=== PATIENT | female | born 1935 | race Caucasian/White ===

== ENCOUNTER 2020-09-12 07:49 | Emergency (ER) | payer MEDICARE, OTHER ==
[~2020-09-12 07:49] MED LIST: Ondansetron PF 4 MG/2 ML Vial ONE
[2020-09-12 08:11] LABS: ALT (SGPT) 17 U/L (8-55); AST (SGOT) 26 U/L (5-34); Albumin 3.7 g/dL (3.4-4.8); Alkaline Phosphatase 130 U/L (40-110); Anion Gap 20 mmol/L (10-20); BUN (Urea Nitrogen) 24 mg/dL (9.8-20.1); Bilirubin, Total 0.6 mg/dL (0.2-1.2); Calc. Creatinine Clearance 0 mL/min (70-130); Calcium 9.3 mg/dL (7.8-10.44); Carbon Dioxide 20 mmol/L (23-31); Chloride 107 mmol/L (98-107); Glucose 126 mg/dL (83-110); Potassium 3.5 mmol/L (3.5-5.1); Protein, Total 6.7 g/dL (5.8-8.1); Sodium 143 mmol/L (136-145)
[2020-09-12 08:15] LABS: Lactic Acid 1.2 mmol/L (0.5-2.2)
[2020-09-12 08:28] LABS: Hemoglobin 13.4 g/dL (12.0-15.5); Mean Corpuscular HGB CONC 31.8 g/dL (32.0-36.0); Mean Corpuscular Hemoglobin 27.9 pg (27.0-33.0); Mean Corpuscular Volume 87.9 fl (81.6-98.3); Mean Platelet Volume 11.5 fl (7.4-10.4); Platelet Count 282 10x3/uL (150-450); RBC Distribution Width 14.8 % (11.5-14.5); White Blood Cell (WBC) Count 6.6 10x3/uL (3.5-10.5)
[2020-09-12 08:29] LABS: Band 47 % (5-11); Eosinophils 3 % (0-10); Lymphocytes 17 % (21-51); MDiff Complete? YES; Monocytes 13 % (0-10); Neutrophil 20 % (42-75)
[2020-09-12 08:30] LABS: Vacuoles SLIGHT
[2020-09-12 08:31] LABS: Platelet Morphology Comment Appears Adequate
== END 2020-09-12 09:38 | disposition home or self-care (01) ==
LOC: CSHERS 07:49
DX: R19.7 Diarrhea, unspecified (principal); E86.0 Dehydration; I25.10 Atherosclerotic heart disease of native coronary artery without angina pectoris; I25.2 Old myocardial infarction; E11.9 Type 2 diabetes mellitus without complications; E03.9 Hypothyroidism, unspecified; E78.5 Hyperlipidemia, unspecified; Z79.84 Long term (current) use of oral hypoglycemic drugs; Z79.899 Other long term (current) drug therapy
CPT/HCPCS: 80053; 83605; 85025; 93005; 93010; 96374; J2405

== ENCOUNTER 2020-09-13 19:36 | Inpatient (IN) | payer MEDICARE, OTHER ==
[2020-09-13] MEDS ORDERED: Ondansetron PF 4 MG/2 ML Vial ONE (20:09)
[2020-09-13 20:47] LABS: Hemoglobin 12.5 g/dL (12.0-15.5); Mean Corpuscular HGB CONC 31.9 g/dL (32.0-36.0); Mean Corpuscular Hemoglobin 27.8 pg (27.0-33.0); Mean Corpuscular Volume 87.3 fl (81.6-98.3); Mean Platelet Volume 11.8 fl (7.4-10.4); Platelet Count 266 10x3/uL (150-450); RBC Distribution Width 15.3 % (11.5-14.5); Red Blood Cell (RBC) Count 4.49 10x6/uL (3.90-5.03); White Blood Cell (WBC) Count 9.1 10x3/uL (3.5-10.5)
[2020-09-13 20:53] LABS: ALT (SGPT) 14 U/L (8-55); AST (SGOT) 19 U/L (5-34); Albumin 3.3 g/dL (3.4-4.8); Alkaline Phosphatase 100 U/L (40-110); Anion Gap 24 mmol/L (10-20); BUN (Urea Nitrogen) 56 mg/dL (9.8-20.1); Bilirubin, Total 0.5 mg/dL (0.2-1.2); Calc. Creatinine Clearance 0 mL/min (70-130); Calcium 8.9 mg/dL (7.8-10.44); Carbon Dioxide 15 mmol/L (23-31); Chloride 106 mmol/L (98-107); Globulin 3.1 g/dL (2.4-3.5); Glucose 133 mg/dL (83-110); Protein, Total 6.4 g/dL (5.8-8.1); Sodium 142 mmol/L (136-145)
[2020-09-13 21:15] LABS: Band 35 % (5-11); Lymphocytes 15 % (21-51); Metamyelocyte 1 % (0-0); Monocytes 13 % (0-10); Reactive Lymphocytes 2 % (0-10)
[2020-09-13 21:16] LABS: Neutrophil 34 % (42-75)
[2020-09-13 21:20] LABS: Burr Cells SLIGHT = 2-5 cells (100X) (0-1/hpf); Poikilocytosis SLIGHT = 6-15 cells (100X) (0-5/hpf)
[2020-09-13 21:22] LABS: Platelet Morphology Comment Appears Adequate
[2020-09-13 21:32] LABS: Potassium 2.8 mmol/L (3.5-5.1)
[2020-09-13] MEDS ORDERED: Magnesium 2 GM/50 ML BAG (IN WATER) ONE (22:23)
[2020-09-13] MEDS ORDERED: Piperacillin/Tazobactam 4.5 GM VIAL ONE (22:23)
[2020-09-13] MEDS ORDERED: Potassium Chloride 20 MEQ/100 ML PREMIX BAG ONE (22:26)
[2020-09-13] MEDS ORDERED: Zolpidem Tartrate 5 MG TAB PO PRN (22:33)
[2020-09-13] MEDS ORDERED: Dextrose 5% in Water 1,000 ML IV PRN (22:33)
[2020-09-13] MEDS ORDERED: Dextrose 50% Abboject 50 ML SYRINGE SLOW IVP PRN (22:33)
[2020-09-13] MEDS ORDERED: Ondansetron PF 4 MG/2 ML Vial IVP PRN (22:33)
[2020-09-13] MEDS ORDERED: HumaLOG 300 UNITS/3 ML VIAL SC PRN (22:33)
[2020-09-13] MEDS ORDERED: Morphine 2 MG/ML VIAL SLOW IVP PRN (22:35)
[2020-09-14 00:07] VITALS: BMI 17.5
[2020-09-14 00:07] LABS: SARS-CoV-2 NAA Rapid Test Not Detected (NotDetected)
[2020-09-14] MEDS ORDERED: Potassium Chloride 20 MEQ in Premix Bag 1 BAG IVPB SCH (01:00)
[2020-09-14] MEDS ORDERED: Potassium Chloride 20 MEQ in Lactated Ringer's 1,000 ML IV SCH (01:00)
[2020-09-14 02:53] LABS: Bilirubin Neg (Negative); Blood, Urine Negative (Negative); Clarity Clear (Clear); Glucose, Urine (Dipstick) Normal (Negative); Ketone, Urine 15 mg/dL (Negative); Leukocyte Negative (Negative); Nitrite Negative (Negative); Protein, Urine (Dipstick) 15 mg/dl (Neg-Trace); Urobilinogen Normal mg/dL (Less than 2)
[2020-09-14] MEDS: Lactated Ringer's 1,000 ML IV SCH ×4 (03:15→20:29)
[2020-09-14 04:00] LABS: RBC/HPF 0-3 HPF (0-3); Squamous Epithelial 0-3 HPF (0-3); WBC/HPF 0-3 HPF (0-3)
[2020-09-14 04:02] LABS: Bacteria/HPF 3+ HPF (None Seen); Mucous/LPF 2+ LPF (<2+); Transitional Epithelial 0-3 HPF (None Seen)
[2020-09-14] MEDS: MEROPENEM 1 GM/50 ML 1 GM in Premix Bag 1 BAG IVPB SCH ×2 (06:02→18:44)
[2020-09-14] MEDS: Levothyroxine Sodium 88 MCG TAB PO SCH (06:05)
[2020-09-14 07:13] LABS: Hemoglobin 12.1 g/dL (12.0-15.5); Mean Corpuscular Hemoglobin 27.7 pg (27.0-33.0); Mean Corpuscular Volume 89.2 fl (81.6-98.3); Mean Platelet Volume 12.3 fl (7.4-10.4); Platelet Count 215 10x3/uL (150-450); RBC Distribution Width 15.6 % (11.5-14.5); Red Blood Cell (RBC) Count 4.37 10x6/uL (3.90-5.03); White Blood Cell (WBC) Count 9.8 10x3/uL (3.5-10.5)
[2020-09-14 07:18] LABS: Anion Gap 21 mmol/L (10-20); BUN (Urea Nitrogen) 45 mg/dL (9.8-20.1); Calc. Creatinine Clearance 17 mL/min (70-130); Calcium 8.6 mg/dL (7.8-10.44); Carbon Dioxide 13 mmol/L (23-31); Chloride 116 mmol/L (98-107); Glucose 96 mg/dL (83-110); Magnesium 2.9 mg/dL (1.6-2.6); Potassium 3.4 mmol/L (3.5-5.1); Sodium 147 mmol/L (136-145)
[2020-09-14 07:55] LABS: MDiff Complete? YES
[2020-09-14 08:00] LABS: Band 36 % (5-11); Lymphocytes 9 % (21-51); Monocytes 7 % (0-10); Neutrophil 46 % (42-75); Reactive Lymphocytes 2 % (0-10)
[2020-09-14 08:02] LABS: Burr Cells MODERATE= 6-15 cells (100X) (0-1/hpf); Platelet Morphology Comment Appears Adequate
[2020-09-14] MEDS: Pantoprazole 40 MG VIAL IVP SCH (09:51)
[2020-09-14] MEDS: Heparin 5,000 UNITS/ML VIAL SC SCH ×3 (09:51→20:36)
[2020-09-14] MEDS: Aspirin 325 mg Enteric Coated Tablet PO SCH (09:51)
[2020-09-14] MEDS ORDERED: Metoprolol Tartrate 5 MG/5 ML VIAL IVP PRN (14:09)
[2020-09-14] MEDS ORDERED: Digoxin 0.5 MG/2 ML AMP ONE (14:14)
[2020-09-14] MEDS ORDERED: Digoxin 0.5 MG/2 ML AMP SLOW IVP SCH ×3 (14:15→23:45)
[2020-09-14] MEDS ORDERED: Sodium Bicarbonate 150 MEQ, Admixture Fee 1 EACH in Dextrose 5% in Water 1,000 ML IV SCH (15:30)
[2020-09-14] MEDS ORDERED: Diltiazem 125 MG in Sodium Chloride 0.9% 100 ML IVPB SCH (18:30)
[2020-09-14] MEDS: Atorvastatin Calcium 20 MG TAB PO SCH (20:36)
[2020-09-14] MEDS ORDERED: Sodium Chloride 0.9% 250 ML IVPB SCH ×2 (23:30→23:45)
[2020-09-14] MEDS ORDERED: Metoprolol Tartrate 25 MG TAB PO SCH (23:45)
[2020-09-15] MEDS: Levothyroxine Sodium 88 MCG TAB PO SCH (05:11)
[2020-09-15] MEDS: MEROPENEM 1 GM/50 ML 1 GM in Premix Bag 1 BAG IVPB SCH ×2 (05:11→18:08)
[2020-09-15] MEDS: Lactated Ringer's 1,000 ML IV SCH ×2 (05:15→13:10)
[2020-09-15 05:39] LABS: ALT (SGPT) 12 U/L (8-55); AST (SGOT) 24 U/L (5-34); Albumin 2.7 g/dL (3.4-4.8); Alkaline Phosphatase 98 U/L (40-110); Anion Gap 14 mmol/L (10-20); BUN (Urea Nitrogen) 33 mg/dL (9.8-20.1); Bilirubin, Total 0.3 mg/dL (0.2-1.2); Calc. Creatinine Clearance 25 mL/min (70-130); Calcium 8.9 mg/dL (7.8-10.44); Carbon Dioxide 24 mmol/L (23-31); Chloride 113 mmol/L (98-107); Globulin 2.4 g/dL (2.4-3.5); Glucose 142 mg/dL (83-110); Protein, Total 5.1 g/dL (5.8-8.1); Sodium 148 mmol/L (136-145)
[2020-09-15 05:45] LABS: Hemoglobin 11.8 g/dL (12.0-15.5); Mean Corpuscular HGB CONC 32.2 g/dL (32.0-36.0); Mean Corpuscular Hemoglobin 27.9 pg (27.0-33.0); Mean Corpuscular Volume 86.5 fl (81.6-98.3); Mean Platelet Volume 12.2 fl (7.4-10.4); Platelet Count 223 10x3/uL (150-450); RBC Distribution Width 15.5 % (11.5-14.5); Red Blood Cell (RBC) Count 4.23 10x6/uL (3.90-5.03); White Blood Cell (WBC) Count 11.3 10x3/uL (3.5-10.5)
[2020-09-15 05:55] LABS: Potassium 2.7 mmol/L (3.5-5.1)
[2020-09-15] MEDS: Potassium Chloride 20 MEQ TAB PO SCH ×2 (06:21→08:51)
[2020-09-15] MEDS: Aspirin 325 mg Enteric Coated Tablet PO SCH (08:50)
[2020-09-15] MEDS: Heparin 5,000 UNITS/ML VIAL SC SCH ×3 (08:50→20:21)
[2020-09-15] MEDS: Metoprolol Tartrate 25 MG TAB PO SCH ×2 (08:50→20:23)
[2020-09-15] MEDS: Pantoprazole 40 MG VIAL IVP SCH (08:50)
[2020-09-15 09:37] LABS: Band 4 % (5-11); Lymphocytes 6 % (21-51); Monocytes 7 % (0-10)
[2020-09-15 09:38] LABS: Burr Cells SLIGHT = 2-5 cells (100X) (0-1/hpf); Elliptocytes SLIGHT = 2-5 cells (100X) (0-1/hpf); MDiff Complete? YES; Neutrophil 83 % (42-75)
[2020-09-15 09:39] LABS: Dohle Bodies SLIGHT; Large Platelets SLIGHT; Platelet Morphology Comment Appears Adequate; Toxic Granulation SLIGHT; Vacuoles SLIGHT
[2020-09-15] MEDS: Atorvastatin Calcium 20 MG TAB PO SCH (20:22)
[2020-09-16] MEDS: MEROPENEM 1 GM/50 ML 1 GM in Premix Bag 1 BAG IVPB SCH (05:15)
[2020-09-16] MEDS: Levothyroxine Sodium 88 MCG TAB PO SCH (05:15)
[2020-09-16 05:45] LABS: Anion Gap 14 mmol/L (10-20); BUN (Urea Nitrogen) 21 mg/dL (9.8-20.1); Calc. Creatinine Clearance 41 mL/min (70-130); Calcium 9.1 mg/dL (7.8-10.44); Carbon Dioxide 21 mmol/L (23-31); Chloride 113 mmol/L (98-107); Glucose 74 mg/dL (83-110); Sodium 145 mmol/L (136-145)
[2020-09-16 05:50] LABS: Potassium 2.9 mmol/L (3.5-5.1)
[2020-09-16 05:57] LABS: Mean Corpuscular HGB CONC 31.5 g/dL (32.0-36.0); Mean Corpuscular Hemoglobin 27.4 pg (27.0-33.0); Mean Platelet Volume 11.6 fl (7.4-10.4); Platelet Count 173 10x3/uL (150-450); RBC Distribution Width 15.7 % (11.5-14.5); Red Blood Cell (RBC) Count 4.38 10x6/uL (3.90-5.03); White Blood Cell (WBC) Count 8.8 10x3/uL (3.5-10.5)
[2020-09-16] MEDS: Potassium Chloride 20 MEQ TAB PO SCH ×2 (06:31→08:49)
[2020-09-16 07:26] LABS: Eosinophils 1 % (0-10); Metamyelocyte 3 % (0-0); Myelocyte 3 % (0-0); Reactive Lymphocytes 5 % (0-10)
[2020-09-16 07:31] LABS: Band 10 % (5-11)
[2020-09-16 07:35] LABS: Monocytes 4 % (0-10)
[2020-09-16 07:36] LABS: Lymphocytes 14 % (21-51); Neutrophil 60 % (42-75)
[2020-09-16 07:39] LABS: Anisocytosis SLIGHT = 6-15 cells (100X) (0-5/hpf); Burr Cells SLIGHT = 2-5 cells (100X) (0-1/hpf); Crenated RBC SLIGHT = 1-5 cells (100X) (None Seen); Elliptocytes SLIGHT = 2-5 cells (100X) (0-1/hpf); Microcytosis SLIGHT = 6-15 cells (100X) (0-5/hpf); Ovalocytes SLIGHT = 2-5 cells (100X) (0-1/hpf); Poikilocytosis MODERATE=16-30 cells (100X) (0-5/hpf)
[2020-09-16 07:40] LABS: Helmet Cells SLIGHT = 2-5 cells (100X) (0-1/hpf)
[2020-09-16 07:41] LABS: Dohle Bodies SLIGHT; Platelet Clumps SLIGHT
[2020-09-16 07:42] LABS: Large Platelets SLIGHT; Platelet Morphology Comment Appears Adequate; Toxic Granulation SLIGHT; Vacuoles SLIGHT
[2020-09-16 07:44] LABS: MDiff Complete? YES; Manual Diff?? YES
[2020-09-16] MEDS: Heparin 5,000 UNITS/ML VIAL SC SCH ×3 (08:50→21:10)
[2020-09-16] MEDS: Metoprolol Tartrate 25 MG TAB PO SCH ×2 (08:50→21:06)
[2020-09-16] MEDS: Aspirin 325 mg Enteric Coated Tablet PO SCH (08:50)
[2020-09-16] MEDS ORDERED: Potassium Chloride 20 MEQ TAB PO SCH ×2 (15:45→18:45)
[2020-09-16] MEDS: Ciprofloxacin 500 MG TAB PO SCH (21:06)
[2020-09-16] MEDS: metroNIDAZOLE 500 MG TAB PO SCH (21:07)
[2020-09-16] MEDS: Atorvastatin Calcium 20 MG TAB PO SCH (21:07)
[2020-09-17 05:17] LABS: Hemoglobin 11.3 g/dL (12.0-15.5); Mean Corpuscular HGB CONC 32.2 g/dL (32.0-36.0); Mean Corpuscular Hemoglobin 27.8 pg (27.0-33.0); Mean Corpuscular Volume 86.2 fl (81.6-98.3); Mean Platelet Volume 11.8 fl (7.4-10.4); Platelet Count 164 10x3/uL (150-450); RBC Distribution Width 15.5 % (11.5-14.5); Red Blood Cell (RBC) Count 4.07 10x6/uL (3.90-5.03); White Blood Cell (WBC) Count 7.4 10x3/uL (3.5-10.5)
[2020-09-17 05:26] LABS: Anion Gap 11 mmol/L (10-20)
[2020-09-17 05:34] LABS: BUN (Urea Nitrogen) 15 mg/dL (9.8-20.1); Calc. Creatinine Clearance 45 mL/min (70-130); Calcium 8.9 mg/dL (7.8-10.44); Carbon Dioxide 23 mmol/L (23-31); Chloride 111 mmol/L (98-107); Glucose 70 mg/dL (83-110); Potassium 4.5 mmol/L (3.5-5.1); Sodium 140 mmol/L (136-145)
[2020-09-17 05:50] LABS: Band 11 % (5-11); Eosinophils 2 % (0-10); Monocytes 8 % (0-10); Myelocyte 4 % (0-0)
[2020-09-17 05:52] LABS: Reactive Lymphocytes 3 % (0-10)
[2020-09-17 05:53] LABS: Lymphocytes 21 % (21-51)
[2020-09-17 05:57] LABS: Metamyelocyte 2 % (0-0); Neutrophil 49 % (42-75)
[2020-09-17 05:58] LABS: Anisocytosis SLIGHT = 6-15 cells (100X) (0-5/hpf); Microcytosis SLIGHT = 6-15 cells (100X) (0-5/hpf); Toxic Granulation MODERATE
[2020-09-17 05:59] LABS: Giant Platelets SLIGHT; Hypersemented Neutrophil SLIGHT; Large Platelets SLIGHT; Vacuoles SLIGHT
[2020-09-17 06:00] LABS: MDiff Complete? YES; Manual Diff?? YES; Platelet Morphology Comment Appears Adequate
[2020-09-17] MEDS: Ciprofloxacin 500 MG TAB PO SCH (06:21)
[2020-09-17] MEDS: Levothyroxine Sodium 88 MCG TAB PO SCH (06:21)
[2020-09-17] MEDS: Metoprolol Tartrate 25 MG TAB PO SCH (08:26)
[2020-09-17] MEDS: metroNIDAZOLE 500 MG TAB PO SCH (08:26)
[2020-09-17] MEDS: Heparin 5,000 UNITS/ML VIAL SC SCH (08:27)
[2020-09-17] MEDS ORDERED: Aspirin 81 mg Enteric Coated Tablet PO SCH (09:00)
[2020-09-17 11:59] VITALS: TEMP 97.6
[2020-09-17 12:21] VITALS: BP 129/66
== END 2020-09-17 13:35 | disposition home or self-care (01) | DRG 394 ==
LOC: CSHERS 19:36 → CSHTELE 09-14 00:04
PROVIDERS: ADMIT Student in an Organized Health Care Education/Training Program; ATTEND Family Medicine
DX: K66.8 Other specified disorders of peritoneum (principal); N17.9 Acute kidney failure, unspecified; E87.2 Acidosis; E87.0 Hyperosmolality and hypernatremia; K56.7 Ileus, unspecified; K56.609 Unspecified intestinal obstruction, unspecified as to partial versus complete obstruction; E03.9 Hypothyroidism, unspecified; Z20.822 Contact with and (suspected) exposure to COVID-19; E87.6 Hypokalemia; R53.81 Other malaise; I25.10 Atherosclerotic heart disease of native coronary artery without angina pectoris; E78.2 Mixed hyperlipidemia; I48.0 Paroxysmal atrial fibrillation; E86.1 Hypovolemia; E11.22 Type 2 diabetes mellitus with diabetic chronic kidney disease; E11.65 Type 2 diabetes mellitus with hyperglycemia; I12.9 Hypertensive chronic kidney disease with stage 1 through stage 4 chronic kidney disease, or unspecified chronic kidney disease; N18.31 Chronic kidney disease, stage 3a; E86.0 Dehydration; K52.9 Noninfective gastroenteritis and colitis, unspecified; Z88.1 Allergy status to other antibiotic agents; Z88.5 Allergy status to narcotic agent; Z91.013 Allergy to seafood; Z91.09 Other allergy status, other than to drugs and biological substances; Z79.01 Long term (current) use of anticoagulants; Z79.82 Long term (current) use of aspirin; Z79.890 Hormone replacement therapy; Z79.891 Long term (current) use of opiate analgesic; I25.2 Old myocardial infarction; Z90.710 Acquired absence of both cervix and uterus; Z82.61 Family history of arthritis; Z82.49 Family history of ischemic heart disease and other diseases of the circulatory system; Z87.891 Personal history of nicotine dependence
CPT/HCPCS: 36415; 36416; 74176; 80048; 80053; 81001; 83605; 83630; 83735; 84439; 84443; 85025; 87040; 87045; 87046; 87324; 87427; 87449; 93005; 93010; 93306; 96365; 96368; 96374; 96375; C9113; J1160; J1644; J2185; J2405; J2543; J3475; J3480; J7030; J7070; J7120; U0002

== ENCOUNTER 2020-09-26 19:03 | Inpatient (IN) | payer MEDICARE, OTHER ==
[2020-09-26] MEDS ORDERED: Ondansetron PF 4 MG/2 ML Vial ONE (19:12)
[2020-09-26 19:38] LABS: Hemoglobin 13.7 g/dL (12.0-15.5); Mean Corpuscular HGB CONC 31.8 g/dL (32.0-36.0); Mean Corpuscular Hemoglobin 27.6 pg (27.0-33.0); Mean Corpuscular Volume 86.9 fl (81.6-98.3); Platelet Count 334 10x3/uL (150-450); RBC Distribution Width 16.9 % (11.5-14.5); Red Blood Cell (RBC) Count 4.96 10x6/uL (3.90-5.03)
[2020-09-26 19:50] LABS: ALT (SGPT) 12 U/L (8-55); AST (SGOT) 19 U/L (5-34); Albumin 3.9 g/dL (3.4-4.8); Alkaline Phosphatase 112 U/L (40-110); Anion Gap 19 mmol/L (10-20); BUN (Urea Nitrogen) 16 mg/dL (9.8-20.1); Bilirubin, Total 0.5 mg/dL (0.2-1.2); Calc. Creatinine Clearance 0 mL/min (70-130); Calcium 9.1 mg/dL (7.8-10.44); Carbon Dioxide 21 mmol/L (23-31); Chloride 103 mmol/L (98-107); Globulin 3.1 g/dL (2.4-3.5); Glucose 150 mg/dL (83-110); Lipase 334 U/L (8-78); Potassium 3.8 mmol/L (3.5-5.1); Sodium 139 mmol/L (136-145)
[2020-09-26 20:14] LABS: Bilirubin Neg (Negative); Blood, Urine Negative (Negative); Clarity Clear (Clear); Glucose, Urine (Dipstick) Normal (Negative); Ketone, Urine Negative (Negative); Leukocyte Negative (Negative); Nitrite Negative (Negative); Protein, Urine (Dipstick) 15 mg/dl (Neg-Trace); Specific Gravity, Urine 1.015 (1.002-1.036); Urobilinogen Normal mg/dL (Less than 2)
[2020-09-26] MEDS ORDERED: Promethazine HCl 25 MG/ML VIAL ONE (20:19)
[2020-09-26 20:33] LABS: Band 3 % (5-11); Lymphocytes 14 % (21-51); Monocytes 4 % (0-10); Neutrophil 78 % (42-75); Reactive Lymphocytes 1 % (0-10)
[2020-09-26 20:34] LABS: Anisocytosis SLIGHT = 6-15 cells (100X) (0-5/hpf); MDiff Complete? YES; Ovalocytes SLIGHT = 2-5 cells (100X) (0-1/hpf)
[2020-09-26 20:35] LABS: Blister Cells SLIGHT = 2-5 cells (100X) (0-1/hpf); Giant Platelets SLIGHT; Platelet Clumps SLIGHT; Platelet Morphology Comment Appears Adequate; Vacuoles SLIGHT
[2020-09-26 22:22] LABS: Lactic Acid 3.7 mmol/L (0.5-2.2)
[2020-09-26] MEDS ORDERED: Cefepime 2 GM VIAL ONE ×3 (23:01)
[2020-09-27] MEDS ORDERED: Calcium Carbonate 500 MG ChewTAB PO PRN (00:25)
[2020-09-27] MEDS ORDERED: Zolpidem Tartrate 5 MG TAB PO PRN (00:25)
[2020-09-27] MEDS ORDERED: Ondansetron PF 4 MG/2 ML Vial IVP PRN (00:25)
[2020-09-27] MEDS ORDERED: Dextrose 5% in Water 1,000 ML IV PRN (00:27)
[2020-09-27] MEDS ORDERED: HumaLOG 300 UNITS/3 ML VIAL SC PRN (00:27)
[2020-09-27 01:21] VITALS: BMI 18.5
[2020-09-27] MEDS: Pantoprazole 40 MG VIAL IVP SCH ×2 (01:51→15:31)
[2020-09-27] MEDS: Lactated Ringer's 1,000 ML IV SCH ×3 (01:52→19:47)
[2020-09-27] MEDS: metroNIDAZOLE 500 MG in Premix Bag 1 BAG IVPB SCH ×3 (05:12→21:16)
[2020-09-27] MEDS: Levothyroxine Sodium 88 MCG TAB PO SCH (05:12)
[2020-09-27 06:36] LABS: Lactic Acid 2.2 mmol/L (0.5-2.2)
[2020-09-27 06:45] LABS: Anion Gap 16 mmol/L (10-20); Globulin 2.5 g/dL (2.4-3.5)
[2020-09-27 06:56] LABS: ALT (SGPT) 8 U/L (8-55); AST (SGOT) 12 U/L (5-34); Albumin 2.7 g/dL (3.4-4.8); Alkaline Phosphatase 55 U/L (40-110); BUN (Urea Nitrogen) 19 mg/dL (9.8-20.1); Bilirubin, Total 0.5 mg/dL (0.2-1.2); CRP (Inflammatory) 6.75 mg/dL (= or < 0.5); Calc. Creatinine Clearance 28 mL/min (70-130); Calcium 8.1 mg/dL (7.8-10.44); Carbon Dioxide 19 mmol/L (23-31); Chloride 112 mmol/L (98-107); Glucose 128 mg/dL (83-110); Lipase 55 U/L (8-78); Magnesium 1.7 mg/dL (1.6-2.6); Potassium 3.9 mmol/L (3.5-5.1); Protein, Total 5.2 g/dL (5.8-8.1); Sodium 143 mmol/L (136-145)
[2020-09-27 08:50] LABS: Hemoglobin 9.3 g/dL (12.0-15.5); Mean Corpuscular Hemoglobin 27.7 pg (27.0-33.0); Mean Corpuscular Volume 86.6 fl (81.6-98.3); Mean Platelet Volume 11.3 fl (7.4-10.4); Platelet Count 285 10x3/uL (150-450); RBC Distribution Width 16.4 % (11.5-14.5); Red Blood Cell (RBC) Count 3.36 10x6/uL (3.90-5.03); White Blood Cell (WBC) Count 9.7 10x3/uL (3.5-10.5)
[2020-09-27] MEDS ORDERED: Aspirin 325 mg Enteric Coated Tablet PO SCH (09:00)
[2020-09-27] MEDS: Saccharomyces boulardii 250 MG CAP PO SCH (09:22)
[2020-09-27] MEDS: Aspirin 81 mg Enteric Coated Tablet PO SCH (09:37)
[2020-09-27] MEDS: Enoxaparin Sodium 30 MG/0.3 ML SYRINGE SC SCH (09:38)
[2020-09-27 09:47] LABS: MDiff Complete? YES
[2020-09-27 09:50] LABS: Band 8 % (5-11); Lymphocytes 7 % (21-51); Monocytes 7 % (0-10); Neutrophil 78 % (42-75)
[2020-09-27 09:51] LABS: Platelet Morphology Comment Appears Adequate
[2020-09-27] MEDS ORDERED: Lactated Ringer's 1,000 ML IV SCH (11:45)
[2020-09-27 13:13] LABS: Hemoglobin 8.8 g/dL (12.0-15.5); Mean Corpuscular HGB CONC 32.2 g/dL (32.0-36.0); Mean Corpuscular Hemoglobin 27.3 pg (27.0-33.0); Mean Corpuscular Volume 84.8 fl (81.6-98.3); Mean Platelet Volume 11.6 fl (7.4-10.4); Platelet Count 273 10x3/uL (150-450); RBC Distribution Width 16.3 % (11.5-14.5); Red Blood Cell (RBC) Count 3.22 10x6/uL (3.90-5.03)
[2020-09-27 13:42] LABS: SARS-CoV-2 PCR by NAA Not Detected (NotDetected)
[2020-09-27 14:13] LABS: MDiff Complete? YES
[2020-09-27 14:17] LABS: Band 6 % (5-11); Lymphocytes 14 % (21-51); Monocytes 5 % (0-10); Neutrophil 75 % (42-75)
[2020-09-27 14:19] LABS: Ovalocytes SLIGHT = 2-5 cells (100X) (0-1/hpf); Platelet Morphology Comment Appears Adequate
[2020-09-27] MEDS: Dextrose 50% Abboject 50 ML SYRINGE SLOW IVP PRN (15:31)
[2020-09-27] MEDS ORDERED: Dextrose 5% in Water 1,000 ML IV SCH (17:00)
[2020-09-27] MEDS: Atorvastatin Calcium 40 MG TAB PO SCH (20:28)
[2020-09-28] MEDS: Pantoprazole 40 MG VIAL IVP SCH ×2 (01:34→14:17)
[2020-09-28 04:18] LABS: Anion Gap 11 mmol/L (10-20); BUN (Urea Nitrogen) 12 mg/dL (9.8-20.1); Calc. Creatinine Clearance 37 mL/min (70-130); Calcium 7.5 mg/dL (7.8-10.44); Carbon Dioxide 20 mmol/L (23-31); Chloride 111 mmol/L (98-107); Glucose 79 mg/dL (83-110); Sodium 139 mmol/L (136-145)
[2020-09-28] MEDS: metroNIDAZOLE 500 MG in Premix Bag 1 BAG IVPB SCH ×3 (05:37→21:35)
[2020-09-28] MEDS: Levothyroxine Sodium 88 MCG TAB PO SCH (05:38)
[2020-09-28] MEDS ORDERED: Enoxaparin Sodium 30 MG/0.3 ML SYRINGE ONE (08:58)
[2020-09-28] MEDS: Enoxaparin Sodium 30 MG/0.3 ML SYRINGE SC SCH (09:00)
[2020-09-28] MEDS: Aspirin 81 mg Enteric Coated Tablet PO SCH (09:01)
[2020-09-28] MEDS: Saccharomyces boulardii 250 MG CAP PO SCH (09:01)
[2020-09-28] MEDS ORDERED: Potassium Chloride 40 MEQ in Sodium Chloride 0.9% 250 ML 250 ML IVPB SCH (09:45)
[2020-09-28] MEDS: Atorvastatin Calcium 40 MG TAB PO SCH (21:35)
[2020-09-29] MEDS: Pantoprazole 40 MG VIAL IVP SCH ×2 (01:02→14:11)
[2020-09-29] MEDS ORDERED: Digoxin 0.5 MG/2 ML AMP SLOW IVP SCH (04:00)
[2020-09-29 05:14] LABS: Anion Gap 14 mmol/L (10-20); BUN (Urea Nitrogen) 7 mg/dL (9.8-20.1); Calc. Creatinine Clearance 41 mL/min (70-130); Calcium 8.2 mg/dL (7.8-10.44); Carbon Dioxide 18 mmol/L (23-31); Chloride 114 mmol/L (98-107); Potassium 3.6 mmol/L (3.5-5.1); Sodium 142 mmol/L (136-145)
[2020-09-29 05:34] LABS: Glucose 58 mg/dL (83-110)
[2020-09-29 05:38] LABS: #Eosinphils 0.1 10x3/uL (0.0-0.5); #Monocytes 0.6 10x3/uL (0.0-1.1); #Neutrophils 4.7 10x3/uL (1.5-8.4); %Basophils 0.4 % (0.0-2.0); %Eosinophils 1.5 % (0.0-6.0); %Lymphocytes 23.6 % (18.0-47.0); %Monocytes 7.9 % (0.0-10.0); %Neutrophils 66.2 % (40.0-75.0); Hemoglobin 10.2 g/dL (12.0-15.5); Mean Corpuscular HGB CONC 31.7 g/dL (32.0-36.0); Mean Corpuscular Hemoglobin 27.9 pg (27.0-33.0); Mean Corpuscular Volume 88.2 fl (81.6-98.3); Mean Platelet Volume 11.2 fl (7.4-10.4); Platelet Count 292 10x3/uL (150-450); RBC Distribution Width 16.7 % (11.5-14.5); Red Blood Cell (RBC) Count 3.65 10x6/uL (3.90-5.03); White Blood Cell (WBC) Count 7.1 10x3/uL (3.5-10.5)
[2020-09-29] MEDS: metroNIDAZOLE 500 MG in Premix Bag 1 BAG IVPB SCH ×3 (05:42→21:15)
[2020-09-29] MEDS: Levothyroxine Sodium 88 MCG TAB PO SCH (05:43)
[2020-09-29] MEDS: Dextrose 50% Abboject 50 ML SYRINGE SLOW IVP PRN (05:44)
[2020-09-29] MEDS ORDERED: Metoprolol Tartrate 5 MG/5 ML VIAL IVP SCH (05:45)
[2020-09-29] MEDS: Enoxaparin Sodium 30 MG/0.3 ML SYRINGE SC SCH (08:08)
[2020-09-29] MEDS: Saccharomyces boulardii 250 MG CAP PO SCH (08:09)
[2020-09-29] MEDS: Aspirin 81 mg Enteric Coated Tablet PO SCH (08:09)
[2020-09-29] MEDS ORDERED: Metoprolol Tartrate 25 MG TAB PO SCH (21:00)
[2020-09-29] MEDS: Metoprolol Tartrate 25 MG TAB PO SCH (21:15)
[2020-09-29] MEDS: Atorvastatin Calcium 40 MG TAB PO SCH (21:15)
[2020-09-30] MEDS: Pantoprazole 40 MG VIAL IVP SCH (02:11)
[2020-09-30] MEDS: metroNIDAZOLE 500 MG in Premix Bag 1 BAG IVPB SCH (05:54)
[2020-09-30] MEDS: Levothyroxine Sodium 88 MCG TAB PO SCH (05:55)
[2020-09-30 06:13] LABS: Anion Gap 12 mmol/L (10-20); BUN (Urea Nitrogen) 5 mg/dL (9.8-20.1); Calc. Creatinine Clearance 42 mL/min (70-130); Carbon Dioxide 21 mmol/L (23-31); Chloride 113 mmol/L (98-107); Glucose 67 mg/dL (83-110); Potassium 3.9 mmol/L (3.5-5.1); Sodium 142 mmol/L (136-145)
[2020-09-30] MEDS: Enoxaparin Sodium 30 MG/0.3 ML SYRINGE SC SCH (08:34)
[2020-09-30] MEDS: Saccharomyces boulardii 250 MG CAP PO SCH (08:34)
[2020-09-30] MEDS: Aspirin 81 mg Enteric Coated Tablet PO SCH (08:34)
[2020-09-30] MEDS: Metoprolol Tartrate 25 MG TAB PO SCH (08:34)
[2020-09-30 13:14] VITALS: BP 123/60; TEMP 98
[2020-10-01] MEDS ORDERED: Enoxaparin Sodium 40 MG/0.4 ML SYRINGE SC SCH (09:00)
== END 2020-09-30 14:31 | disposition home or self-care (01) | DRG 872 ==
LOC: CSHERS 19:03 → CSHTELE 09-27 01:14
PROVIDERS: ADMIT Emergency Medicine; ATTEND Family Medicine
DX: A41.9 Sepsis, unspecified organism (principal); N17.9 Acute kidney failure, unspecified; E87.2 Acidosis; E11.22 Type 2 diabetes mellitus with diabetic chronic kidney disease; I25.10 Atherosclerotic heart disease of native coronary artery without angina pectoris; E78.5 Hyperlipidemia, unspecified; I49.3 Ventricular premature depolarization; I48.0 Paroxysmal atrial fibrillation; E03.9 Hypothyroidism, unspecified; E11.65 Type 2 diabetes mellitus with hyperglycemia; I12.9 Hypertensive chronic kidney disease with stage 1 through stage 4 chronic kidney disease, or unspecified chronic kidney disease; E86.1 Hypovolemia; N18.31 Chronic kidney disease, stage 3a; R79.89 Other specified abnormal findings of blood chemistry; K29.00 Acute gastritis without bleeding; K57.10 Diverticulosis of small intestine without perforation or abscess without bleeding; K52.9 Noninfective gastroenteritis and colitis, unspecified; E87.6 Hypokalemia; I25.2 Old myocardial infarction; Z88.6 Allergy status to analgesic agent; Z88.1 Allergy status to other antibiotic agents; Z91.013 Allergy to seafood; Z79.899 Other long term (current) drug therapy; Z79.84 Long term (current) use of oral hypoglycemic drugs; Z87.891 Personal history of nicotine dependence
CPT/HCPCS: 36415; 36416; 51701; 71045; 74177; 80048; 80053; 81003; 83605; 83690; 83735; 84145; 84443; 84484; 85025; 85652; 86140; 87040; 87086; 87635; 93005; 96365; 96375; C9113; J0692; J1160; J1650; J1956; J2405; J2550; J3480; J7050; J7120; U0003; U0005

== ENCOUNTER 2021-01-24 17:41 | Emergency (ER) | payer MEDICARE, OTHER ==
[2021-01-24 19:45] LABS: #Monocytes 1.3 10x3/uL (0.0-1.1); #Neutrophils 14.9 10x3/uL (1.5-8.4); %Basophils 0.1 % (0.0-2.0); %Eosinophils 0.1 % (0.0-6.0); %Lymphocytes 2.7 % (18.0-47.0); %Monocytes 7.5 % (0.0-10.0); %Neutrophils 88.9 % (40.0-75.0); Hemoglobin 11.4 g/dL (12.0-15.5); Mean Corpuscular HGB CONC 32.7 g/dL (32.0-36.0); Mean Corpuscular Hemoglobin 29.2 pg (27.0-33.0); Mean Corpuscular Volume 89.5 fl (81.6-98.3); Mean Platelet Volume 11.5 fl (7.4-10.4); Platelet Count 175 10x3/uL (150-450); White Blood Cell (WBC) Count 16.7 10x3/uL (3.5-10.5)
[2021-01-24 19:52] LABS: ALT (SGPT) 21 U/L (8-55); AST (SGOT) 32 U/L (5-34); Albumin 2.7 g/dL (3.4-4.8); Alkaline Phosphatase 98 U/L (40-110); Anion Gap 15 mmol/L (10-20); BUN (Urea Nitrogen) 25 mg/dL (9.8-20.1); Bilirubin, Total 0.6 mg/dL (0.2-1.2); Calc. Creatinine Clearance 0 mL/min (70-130); Calcium 8.9 mg/dL (7.8-10.44); Carbon Dioxide 24 mmol/L (23-31); Chloride 107 mmol/L (98-107); Globulin 2.8 g/dL (2.4-3.5); Glucose 169 mg/dL (83-110); Lipase 15 U/L (8-78); Protein, Total 5.5 g/dL (5.8-8.1); Sodium 142 mmol/L (136-145)
[2021-01-24 20:16] LABS: Bilirubin Neg (Negative); Blood, Urine Negative (Negative); Clarity Clear (Clear); Glucose, Urine (Dipstick) Normal (Negative); Ketone, Urine 5 mg/dL (Negative); Leukocyte Negative (Negative); Nitrite Negative (Negative); Protein, Urine (Dipstick) Negative (Neg-Trace); Specific Gravity, Urine 1.015 (1.002-1.036); Urobilinogen Normal mg/dL (Less than 2)
== END 2021-01-24 23:10 | disposition home or self-care (01) ==
LOC: CSHERS 17:41
DX: D73.5 Infarction of spleen (principal); I48.91 Unspecified atrial fibrillation; I25.2 Old myocardial infarction; E11.9 Type 2 diabetes mellitus without complications; E03.9 Hypothyroidism, unspecified; E78.5 Hyperlipidemia, unspecified; Z79.899 Other long term (current) drug therapy
CPT/HCPCS: 51701; 71045; 74177; 80053; 81003; 83605; 83690; 85025; 87040; 93005

== ENCOUNTER 2021-06-09 16:15 | Inpatient (IN) | payer MEDICARE, OTHER ==
[2021-06-09] MEDS ORDERED: Acetaminophen 650 MG Suppository PR PRN (18:18)
[2021-06-09] MEDS ORDERED: Ondansetron ODT 4 MG TAB PO PRN (18:18)
[2021-06-09] MEDS ORDERED: Ondansetron PF 4 MG/2 ML Vial IVP PRN (18:18)
[2021-06-09] MEDS ORDERED: Sodium Chloride 0.9% 1,000 ML IV SCH (18:30)
[2021-06-09 19:58] LABS: CKMB 6.8 ng/mL (0-6.6)
[2021-06-09 20:17] LABS: Magnesium 2.2 mg/dL (1.6-2.6)
[2021-06-09] MEDS ORDERED: Atorvastatin Calcium 20 MG TAB PO SCH (21:45)
[2021-06-09] MEDS ORDERED: Apixaban 2.5 MG TAB PO SCH (21:45)
[2021-06-09] MEDS ORDERED: Apixaban 5 MG TAB ONE (22:25)
[2021-06-09] MEDS ORDERED: cefTRIAXone\\ROCEPHIN 1 GM VIAL ONE (22:26)
[2021-06-09] MEDS: Sodium Chloride 0.9% 1,000 ML IV SCH (22:45)
[2021-06-09] MEDS: cefTRIAXone\\ROCEPHIN 1 GM in Sodium Chloride 0.9% 100 ML IVPB SCH (22:45)
[2021-06-09 22:57] VITALS: BMI 16.6
[2021-06-10] MEDS: Levothyroxine Sodium 75 MCG TAB PO SCH (05:10)
[2021-06-10 06:12] LABS: Anion Gap 18 mmol/L (10-20); BUN (Urea Nitrogen) 74 mg/dL (9.8-20.1); Calc. Creatinine Clearance 14 mL/min (70-130); Calcium 8.5 mg/dL (7.8-10.44); Carbon Dioxide 22 mmol/L (23-31); Chloride 106 mmol/L (98-107); Glucose 69 mg/dL (83-110); Potassium 4.8 mmol/L (3.5-5.1); Sodium 141 mmol/L (136-145)
[2021-06-10 06:13] LABS: #Monocytes 0.9 10x3/uL (0.0-1.1); #Neutrophils 5.8 10x3/uL (1.5-8.4); %Basophils 0.1 % (0.0-2.0); %Eosinophils 0.1 % (0.0-6.0); %Lymphocytes 12.3 % (18.0-47.0); %Monocytes 11.6 % (0.0-10.0); %Neutrophils 75.6 % (40.0-75.0); Hemoglobin 11.9 g/dL (12.0-15.5); Mean Corpuscular HGB CONC 32.1 g/dL (32.0-36.0); Mean Corpuscular Hemoglobin 31.6 pg (27.0-33.0); Mean Corpuscular Volume 98.4 fl (81.6-98.3); Mean Platelet Volume 11.4 fl (7.4-10.4); Platelet Count 231 10x3/uL (150-450); RBC Distribution Width 15.8 % (11.5-14.5); Red Blood Cell (RBC) Count 3.77 10x6/uL (3.90-5.03); White Blood Cell (WBC) Count 7.7 10x3/uL (3.5-10.5)
[2021-06-10] MEDS ORDERED: Aspirin 81 mg Enteric Coated Tablet ONE (09:13)
[2021-06-10] MEDS ORDERED: Apixaban 5 MG TAB ONE (09:13)
[2021-06-10] MEDS ORDERED: Apixaban 2.5 MG TAB ONE (09:15)
[2021-06-10] MEDS: Apixaban 2.5 MG TAB PO SCH ×2 (09:30→22:13)
[2021-06-10] MEDS: Aspirin 81 mg Enteric Coated Tablet PO SCH (09:30)
[2021-06-10] MEDS: Sodium Chloride 0.9% 1,000 ML IV SCH ×2 (10:03→17:56)
[2021-06-10] MEDS ORDERED: Amiodarone 200 MG TAB PO SCH (10:45)
[2021-06-10 19:51] LABS: Hemoglobin A1c 5.1 % (4.0-6.0)
[2021-06-10] MEDS: cefTRIAXone\\ROCEPHIN 1 GM in Sodium Chloride 0.9% 100 ML IVPB SCH (22:12)
[2021-06-10] MEDS: Atorvastatin Calcium 20 MG TAB PO SCH (22:13)
[2021-06-11 05:05] LABS: #Eosinphils 0.1 10x3/uL (0.0-0.5); #Monocytes 0.6 10x3/uL (0.0-1.1); #Neutrophils 4.2 10x3/uL (1.5-8.4); %Basophils 0.2 % (0.0-2.0); %Eosinophils 1.4 % (0.0-6.0); %Lymphocytes 12.7 % (18.0-47.0); %Monocytes 11.3 % (0.0-10.0); %Neutrophils 73.9 % (40.0-75.0); Hemoglobin 10.3 g/dL (12.0-15.5); Mean Corpuscular HGB CONC 30.9 g/dL (32.0-36.0); Mean Corpuscular Hemoglobin 31.4 pg (27.0-33.0); Mean Corpuscular Volume 101.5 fl (81.6-98.3); Platelet Count 179 10x3/uL (150-450); RBC Distribution Width 15.9 % (11.5-14.5); Red Blood Cell (RBC) Count 3.28 10x6/uL (3.90-5.03); White Blood Cell (WBC) Count 5.7 10x3/uL (3.5-10.5)
[2021-06-11 05:30] LABS: Anion Gap 12 mmol/L (10-20); BUN (Urea Nitrogen) 44 mg/dL (9.8-20.1); Calc. Creatinine Clearance 23 mL/min (70-130); Calcium 7.9 mg/dL (7.8-10.44); Carbon Dioxide 22 mmol/L (23-31); Chloride 111 mmol/L (98-107); Glucose 69 mg/dL (83-110); Potassium 3.8 mmol/L (3.5-5.1); Sodium 141 mmol/L (136-145)
[2021-06-11] MEDS: Levothyroxine Sodium 75 MCG TAB PO SCH (06:31)
[2021-06-11] MEDS: Sodium Chloride 0.9% 1,000 ML IV SCH (06:31)
[2021-06-11] MEDS: Apixaban 2.5 MG TAB PO SCH ×2 (08:31→20:47)
[2021-06-11] MEDS: Amiodarone 200 MG TAB PO SCH (08:31)
[2021-06-11] MEDS: Aspirin 81 mg Enteric Coated Tablet PO SCH (08:31)
[2021-06-11] MEDS: Acetaminophen 325 MG TAB PO PRN (13:42)
[2021-06-11] MEDS ORDERED: Gabapentin 100 MG CAP PO SCH (15:30)
[2021-06-11] MEDS ORDERED: Gabapentin 300 MG CAP PO SCH (20:00)
[2021-06-11] MEDS: Atorvastatin Calcium 20 MG TAB PO SCH (20:47)
[2021-06-11] MEDS: cefTRIAXone\\ROCEPHIN 1 GM in Sodium Chloride 0.9% 100 ML IVPB SCH (20:59)
[2021-06-11] MEDS: Metoprolol Tartrate 25 MG TAB PO SCH (22:05)
[2021-06-12 04:38] LABS: #Monocytes 0.6 10x3/uL (0.0-1.1); #Neutrophils 4.5 10x3/uL (1.5-8.4); %Basophils 0.3 % (0.0-2.0); %Eosinophils 0.5 % (0.0-6.0); %Lymphocytes 13.4 % (18.0-47.0); %Monocytes 9.4 % (0.0-10.0); %Neutrophils 75.7 % (40.0-75.0); Hemoglobin 10.8 g/dL (12.0-15.5); Mean Corpuscular HGB CONC 31.2 g/dL (32.0-36.0); Mean Corpuscular Hemoglobin 31.8 pg (27.0-33.0); Mean Corpuscular Volume 101.8 fl (81.6-98.3); Mean Platelet Volume 10.9 fl (7.4-10.4); Platelet Count 191 10x3/uL (150-450)
[2021-06-12 04:57] LABS: Anion Gap 11 mmol/L (10-20); BUN (Urea Nitrogen) 23 mg/dL (9.8-20.1); Calc. Creatinine Clearance 28 mL/min (70-130); Calcium 7.8 mg/dL (7.8-10.44); Carbon Dioxide 21 mmol/L (23-31); Chloride 113 mmol/L (98-107); Glucose 82 mg/dL (83-110); Potassium 3.7 mmol/L (3.5-5.1); Sodium 141 mmol/L (136-145)
[2021-06-12] MEDS: Levothyroxine Sodium 75 MCG TAB PO SCH (05:58)
[2021-06-12] MEDS: Metoprolol Tartrate 25 MG TAB PO SCH (09:38)
[2021-06-12] MEDS: Amiodarone 200 MG TAB PO SCH (09:39)
[2021-06-12] MEDS: Aspirin 81 mg Enteric Coated Tablet PO SCH (09:45)
[2021-06-12] MEDS: Apixaban 2.5 MG TAB PO SCH (09:45)
[2021-06-12] MEDS ORDERED: Senokot S 8.6-50 MG TAB PO SCH (15:00)
[2021-06-12] MEDS: Acetaminophen 325 MG TAB PO PRN (15:13)
[2021-06-12 17:11] VITALS: BP 110/52; TEMP 99
[2021-06-13] MEDS ORDERED: Amiodarone 200 MG TAB PO SCH (09:00)
== END 2021-06-12 19:47 | DRG 682 ==
LOC: CSHERS 16:15 → CSHERHOLD 21:30 → CSHTELE 06-10 09:51
PROVIDERS: ADMIT Family Medicine; ATTEND Physician Assistant
DX: N17.9 Acute kidney failure, unspecified (principal); E43 Unspecified severe protein-calorie malnutrition; I50.32 Chronic diastolic (congestive) heart failure; N30.00 Acute cystitis without hematuria; L97.929 Non-pressure chronic ulcer of unspecified part of left lower leg with unspecified severity; L97.919 Non-pressure chronic ulcer of unspecified part of right lower leg with unspecified severity; R64 Cachexia; I24.8 Other forms of acute ischemic heart disease; Z68.1 Body mass index [BMI] 19.9 or less, adult; E86.0 Dehydration; E11.9 Type 2 diabetes mellitus without complications; Z96.641 Presence of right artificial hip joint; Z20.822 Contact with and (suspected) exposure to COVID-19; I25.10 Atherosclerotic heart disease of native coronary artery without angina pectoris; E03.9 Hypothyroidism, unspecified; I48.0 Paroxysmal atrial fibrillation; I11.0 Hypertensive heart disease with heart failure; E78.2 Mixed hyperlipidemia; E11.622 Type 2 diabetes mellitus with other skin ulcer; E11.59 Type 2 diabetes mellitus with other circulatory complications; I95.9 Hypotension, unspecified; Z79.899 Other long term (current) drug therapy; Z79.82 Long term (current) use of aspirin; Z88.1 Allergy status to other antibiotic agents; Z88.5 Allergy status to narcotic agent; I25.2 Old myocardial infarction; Z88.8 Allergy status to other drugs, medicaments and biological substances; Z91.013 Allergy to seafood; Z79.01 Long term (current) use of anticoagulants
CPT/HCPCS: 36415; 36416; 80048; 82550; 82553; 83036; 83735; 85025; 87086; 87804; 93005; 93010; 93306; 94760; 99285; J0696; J3490; J7050

== ENCOUNTER 2022-01-01 13:13 | Outpatient (CLI) | payer MEDICARE, OTHER | END 2022-01-01 13:14 | disposition home or self-care (01) | LOC: CSHWCC 13:13 | PROVIDERS: ATTEND Nurse Practitioner Family | DX: I87.311 Chronic venous hypertension (idiopathic) with ulcer of right lower extremity (principal); L97.412 Non-pressure chronic ulcer of right heel and midfoot with fat layer exposed; R60.0 Localized edema | CPT/HCPCS: 29581 ==